=== PATIENT | female | born 1955 | race Asian ===

== ENCOUNTER 2017-05-31 12:21 | Day surgery (SDC) | payer MEDICAID ==
[~2017-05-31] VITALS: Ht 160 cm; Wt 58.5 kg
[2017-05-31] MEDS ORDERED: atorvastatin (12:53)
[2017-05-31] MEDS ORDERED: alendronate sodium (12:53)
[2017-05-31] MEDS ORDERED: levothyroxine (12:53)
[2017-05-31 13:00] VITALS: Ht 160 cm; Wt 58.5 kg
[2017-05-31 14:21] VITALS: BP 108/62; PULSE 57; RESP 18
[2017-05-31 15:14] VITALS: BP 112/58; PULSE 60; RESP 12
[2017-05-31] MEDS ORDERED: PROPOFOL 20 ML ONE (18:03)
[2017-05-31] MEDS ORDERED: LIDOCAINE 2% (SDV) 5 ML INJ ONE (18:03)
--- NOTE | 2017-06-05 08:28 | GILP ---
DATE OF PROCEDURE: 05/31/2017 PROCEDURE: Colonoscopy of the cecum. HISTORY AND INDICATIONS: This is a patient is here for colorectal cancer screening. PREMEDICATION: Monitored anesthesia care by Anesthesiologist. INSTRUMENT USED: Colonoscope. PREPARATION: Adequate. TECHNIQUE: After informed consent, with the patient/relatives understanding the procedure, its indications potential risks and complications, including but not limited to: allergic reaction, bleeding, perforation, infection, missed lesions and after all pertinent questions were answered to the patient's satisfaction, the patient/relatives signed the witnessed informed consent. Following this, premedication was administered slowly IV push by under careful cardiovascular and respiratory monitoring with pulse oximetry, automatic blood pressure and monitoring engineer. Once the sedative effect was achieved, the patient was placed in the left lateral decubitus position, digital rectal examination was performed. The colonoscope was then introduced and advanced under visual control throughout all segments of the colon including: the rectum, sigmoid, descending colon, splenic flexure, transverse colon, hepatic flexure, ascending colon and finally reaching the cecum which was clearly identified by transillumination, finger indentation and the ileocecal valve. Careful examination of the mucosa of the lower gastrointestinal tract both on insertion as well as withdrawal of the instrument disclosed the following findings: RECTAL EXAMINATION: No evidence of perirectal disease, no masses. COLONIC MUCOSA: The mucosa of all segments of the colon appears within normal limits. There is no evidence of inflammatory changes, diverticular formation, polyps or other neoplasms, vascular malformation, or any other abnormality. The instrument was then withdrawn, the patient tolerated the procedure well and was transferred out of the [facility]oscopy Suite awake and in good condition to continue recovery under observation. No other additional abnormalities with the exception of small- sized internal hemorrhoids. IMPRESSION: 1. Normal colonic mucosa at the cecum. 2. Small internal hemorrhoids of no clinical significance. RECOMMENDATIONS: Follow up as an outpatient. Annual Hemoccult stool testing is recommended. Screening colonoscopy in 10 years is recommended as well. Dictated By: José Manuel Hogue MD /romain/pilar /Document#: [id number]
== END 2017-05-31 16:20 | disposition home or self-care (01) ==
LOC: GIL 12:21
PROVIDERS: ATTEND Internal Medicine Gastroenterology
DX: Z12.11 Encounter for screening for malignant neoplasm of colon (principal); K64.8 Other hemorrhoids; E03.9 Hypothyroidism, unspecified; Z85.3 Personal history of malignant neoplasm of breast
CPT/HCPCS: 45378; Z7610